=== PATIENT | male | born 1965 | race Caucasian/White ===

== ENCOUNTER 2023-03-16 07:54 | Emergency (ER) | payer OTHER ==
[~2023-03-16] VITALS: Ht 182.9 cm; Wt 85.4 kg
[2023-03-16 12:50] VITALS: BP 129/85; PULSE 69; RESP 18; TEMP 98.1; O2SAT 98
== END 2023-03-16 16:07 | disposition home or self-care (01) ==
LOC: ER 07:54
DX: S60.221A Contusion of right hand, initial encounter (principal); M79.641 Pain in right hand; G89.29 Other chronic pain; Z56.0 Unemployment, unspecified; Z88.8 Allergy status to other drugs, medicaments and biological substances; W22.8XXA Striking against or struck by other objects, initial encounter; Y93.89 Activity, other specified; Y92.89 Other specified places as the place of occurrence of the external cause; Y99.8 Other external cause status
CPT/HCPCS: 73130; 99283; A6449

== ENCOUNTER 2023-06-26 17:39 | Emergency (ER) | payer OTHER ==
[~2023-06-26] VITALS: Ht 182.9 cm; Wt 84.3 kg
[2023-06-26 18:00] VITALS: BP 121/76; PULSE 109; RESP 18; TEMP 100.4; O2SAT 96
[2023-06-26] MEDS ORDERED: AMOX-115 PO (18:47)
[2023-06-26] MEDS: amox tr/potassium clavulanate 875/125mg TAB PO ONE (19:12)
== END 2023-06-26 19:19 | disposition home or self-care (01) ==
LOC: ER 17:40
DX: S60.222A Contusion of left hand, initial encounter (principal); Z88.8 Allergy status to other drugs, medicaments and biological substances; G89.29 Other chronic pain; M54.9 Dorsalgia, unspecified; W54.0XXA Bitten by dog, initial encounter; Y93.89 Activity, other specified; Y92.89 Other specified places as the place of occurrence of the external cause; Y99.8 Other external cause status
CPT/HCPCS: 73130; 99283; J7030; A6258; A6449

== ENCOUNTER 2023-06-30 17:03 | Inpatient (IN) | payer BC, MEDICARE, OTHER ==
[~2023-06-30] VITALS: Ht 182.9 cm; Wt 86.4 kg
[~2023-06-30 17:03] MED LIST: AMOX-115 PO
[2023-06-30] MEDS ORDERED: levoFLOXACIN-Levaquin 500mg/D5 100 ML IV SCH (19:00)
[2023-06-30 19:19] LABS: BASOPHILS # (AUTO) 0.1 X10'3 (0-0.2); BASOPHILS % (AUTO) 0.6 % (0-1); EOSINOPHILS # (AUTO) 0.3 X10'3 (0-0.9); EOSINOPHILS % (AUTO) 3.2 % (0-6); HEMATOCRIT 43.8 % (42.0-52.0); HEMOGLOBIN 15.1 g/dl (14.0-17.9); LYMPHOCYTES # (AUTO) 2.1 X10'3 (1.1-4.8); LYMPHOCYTES % (AUTO) 21.7 % (21-51); MEAN CORPUSCULAR HEMOGLOBIN 31.7 PG (27.0-31.0); MEAN CORPUSCULAR HGB CONC 34.5 g/dL (33.0-36.5); MEAN PLATELET VOLUME 7.5 FL (7.4-10.4); MONOCYTES # (AUTO) 0.9 X10'3 (0-0.9); MONOCYTES % (AUTO) 9.7 % (2-12); NEUTROPHILS # (AUTO) 6.2 X10'3 (1.8-7.7); NEUTROPHILS % (AUTO) 64.8 % (42-75); PLATELET COUNT 259 X10'3 (140-440); RED BLOOD COUNT 4.76 X10'6 (4.70-6.10); WHITE BLOOD COUNT 9.6 X10'3 (4.5-11.0)
[2023-06-30] MEDS: metroNIDAZOLE-Flagyl 500mg/NS 100 ML IV ONE (19:24)
[2023-06-30] MEDS: ondansetron/PF 4mg/2ml inj IV ONE (19:24)
[2023-06-30] MEDS: normal saline 1000ML IV soln IVB ONE (19:24)
[2023-06-30 19:35] LABS: ALANINE AMINOTRANSFERASE 22 U/L (12-78); ALBUMIN 3.7 G/DL (3.4-5.0); ALBUMIN/GLOBULIN RATIO 1.1 (1.1-1.5); ALKALINE PHOSPHATASE 85 IU/L (46-116); ANION GAP 9 (8-16); ASPARTATE AMINO TRANSFERASE 37 U/L (10-37); BILIRUBIN,DIRECT 0.2 MG/DL (0-0.3); BILIRUBIN,TOTAL 0.6 MG/DL (0.1-1.0); BLOOD UREA NITROGEN 11 MG/DL (7-18); BUN/CREATININE RATIO 10.6 (10.0-20.0); C-REACTIVE PROTEIN 0.86 MG/DL (0.0-0.5); CHLORIDE 102 MMOL/L (99-107); CREATININE 1.04 MG/DL (0.60-1.10); GLUCOSE 94 MG/DL (70-104); POTASSIUM 3.8 MMOL/L (3.5-5.1); SODIUM 140 MMOL/L (135-145); TOTAL CARBON DIOXIDE 28.7 MMOL/L (24-32); TOTAL PROTEIN 7.1 G/DL (6.4-8.2); eCRCL 84 ML/MIN; eGFR 73 ML/MIN
[2023-06-30 20:12] LABS: BILIRUBIN,URINE NEGATIVE (Neg); CLARITY,URINE CLEAR (Clear); COLOR,URINE YELLOW (Yellow); GLUCOSE, URINE NEGATIVE (Neg); KETONES,URINE NEGATIVE (Neg); LEUKOCYTE ESTERASE ,URINE NEGATIVE (Neg); NITRITES, URINE NEGATIVE (Neg); OCCULT BLOOD,URINE NEGATIVE (Neg); PH,URINE 6.5 (4.8-8.0); PROTEIN,URINE NEGATIVE (Neg); UROBILINOGEN,URINE 0.2 E.U/dL (0.2-1.0)
[2023-06-30 20:21] LABS: UA COLLECTION TYPE CLN CATCH MIDSTREAM
[2023-06-30] MEDS: morphine 4 MG/ML inj SYRINge IV ONE (20:38)
[2023-06-30] MEDS: levoFLOXACIN-Levaquin 500mg/D5 100 ML IV ONE (20:40)
[2023-06-30] MEDS ORDERED: HYDROcodone/acetaminophen 5mg/325mg tablet PO PRN (20:50)
[2023-06-30] MEDS ORDERED: magnesium hydroxide 30ml (MOM) UD suspension PO PRN (20:50)
[2023-06-30] MEDS ORDERED: morphine 2 MG/ML inj. syringe IV PRN ×2 (20:50)
[2023-06-30] MEDS ORDERED: magnesium Cl slow-release 64mg tablet PO PRN (20:50)
[2023-06-30] MEDS ORDERED: potassium Cl 20 mEq SR tablet PO PRN ×2 (20:50)
[2023-06-30] MEDS ORDERED: potassium Cl 40MEQ/1/2NS 520ml 520 ML IV PRN (20:50)
[2023-06-30] MEDS ORDERED: acetaminophen 325mg tablet PO PRN ×2 (20:50)
[2023-06-30] MEDS ORDERED: magnesium 2GM in 50ml NS 50 ML IV PRN (20:50)
[2023-06-30] MEDS ORDERED: magnesium 4gm in 100ml NS 100 ML IV PRN (20:50)
[2023-06-30] MEDS: ketorolac trometh. 30mg/ml inj. IV ONE (21:19)
[2023-07-01] MEDS: HYDROcodone/acetaminophen 10/325mg tab PO PRN (01:05)
[2023-07-01] MEDS: piperacillin/tazo 3.375gm/50ml 50 ML IV SCH (03:22)
[2023-07-01 07:30] VITALS: BP 147/76; PULSE 78; RESP 16; TEMP 97.6; O2SAT 97
[2023-07-01] MEDS: K and/or MAG REPLACEMENT MC SCH (08:00)
[2023-07-01 08:17] LABS: BASOPHILS % (AUTO) 0.5 % (0-1); EOSINOPHILS # (AUTO) 0.3 X10'3 (0-0.9); EOSINOPHILS % (AUTO) 3.4 % (0-6); HEMATOCRIT 42.2 % (42.0-52.0); HEMOGLOBIN 14.7 g/dl (14.0-17.9); LYMPHOCYTES # (AUTO) 1.5 X10'3 (1.1-4.8); MEAN CORPUSCULAR HEMOGLOBIN 31.5 PG (27.0-31.0); MEAN CORPUSCULAR HGB CONC 34.7 g/dL (33.0-36.5); MEAN CORPUSCULAR VOLUME 90.8 FL (78-98); MEAN PLATELET VOLUME 7.4 FL (7.4-10.4); MONOCYTES # (AUTO) 0.7 X10'3 (0-0.9); MONOCYTES % (AUTO) 8.9 % (2-12); NEUTROPHILS % (AUTO) 67.2 % (42-75); PLATELET COUNT 242 X10'3 (140-440); RED BLOOD COUNT 4.65 X10'6 (4.70-6.10); RED CELL DISTRIBUTION WIDTH 13.8 % (11.5-14.5); WHITE BLOOD COUNT 7.5 X10'3 (4.5-11.0)
[2023-07-01 08:31] LABS: ALANINE AMINOTRANSFERASE 23 U/L (12-78); ALBUMIN 3.2 G/DL (3.4-5.0); ALKALINE PHOSPHATASE 87 IU/L (46-116); ANION GAP 7 (8-16); ASPARTATE AMINO TRANSFERASE 28 U/L (10-37); BILIRUBIN,TOTAL 0.7 MG/DL (0.1-1.0); BLOOD UREA NITROGEN 8 MG/DL (7-18); BUN/CREATININE RATIO 9.4 (10.0-20.0); CALCIUM 8.1 MG/DL (8.5-10.1); CHLORIDE 104 MMOL/L (99-107); CREATININE 0.85 MG/DL (0.60-1.10); GLUCOSE 109 MG/DL (70-104); MAGNESIUM 1.8 MG/DL (1.5-2.4); POTASSIUM 3.9 MMOL/L (3.5-5.1); SODIUM 137 MMOL/L (135-145); TOTAL CARBON DIOXIDE 25.6 MMOL/L (24-32); TOTAL PROTEIN 6.4 G/DL (6.4-8.2); eCRCL 103 ML/MIN; eGFR > 90 ML/MIN
[2023-07-01] MEDS: aspirin 81mg, enteric-coated 1 TAB TABLET.DR PO SCH (08:35)
[2023-07-01] MEDS: clopidogrel 75mg tablet PO SCH (08:35)
[2023-07-01 10:00] VITALS: BP 133/77; PULSE 78; RESP 18; TEMP 98; O2SAT 95
[2023-07-01] MEDS ORDERED: CLOP75TA34 PO (11:20)
[2023-07-01] MEDS ORDERED: ASPI-611 PO (11:20)
[2023-07-01] MEDS ORDERED: CHOL20004 PO (11:20)
[2023-07-01] MEDS ORDERED: CHOL100025 PO ×2 (11:25→11:31)
[2023-07-01] MEDS: ondansetron/PF 4mg/2ml inj IV PRN (13:57)
[2023-07-01 22:00] VITALS: BP 135/72; PULSE 77; RESP 16; TEMP 98.4; O2SAT 97
[2023-07-02 03:24] LABS: BASOPHILS # (AUTO) 0.1 X10'3 (0-0.2); EOSINOPHILS # (AUTO) 0.3 X10'3 (0-0.9); EOSINOPHILS % (AUTO) 4.3 % (0-6); HEMATOCRIT 44.2 % (42.0-52.0); HEMOGLOBIN 14.9 g/dl (14.0-17.9); LYMPHOCYTES # (AUTO) 1.7 X10'3 (1.1-4.8); LYMPHOCYTES % (AUTO) 23.3 % (21-51); MEAN CORPUSCULAR HEMOGLOBIN 31.1 PG (27.0-31.0); MEAN CORPUSCULAR HGB CONC 33.8 g/dL (33.0-36.5); MONOCYTES # (AUTO) 0.7 X10'3 (0-0.9); MONOCYTES % (AUTO) 10.4 % (2-12); NEUTROPHILS # (AUTO) 4.3 X10'3 (1.8-7.7); PLATELET COUNT 244 X10'3 (140-440); RED BLOOD COUNT 4.81 X10'6 (4.70-6.10); RED CELL DISTRIBUTION WIDTH 13.8 % (11.5-14.5); WHITE BLOOD COUNT 7.1 X10'3 (4.5-11.0)
[2023-07-02 03:42] LABS: ALANINE AMINOTRANSFERASE 26 U/L (12-78); ALBUMIN 3.3 G/DL (3.4-5.0); ALKALINE PHOSPHATASE 84 IU/L (46-116); ANION GAP 8 (8-16); ASPARTATE AMINO TRANSFERASE 28 U/L (10-37); BILIRUBIN,TOTAL 0.6 MG/DL (0.1-1.0); BLOOD UREA NITROGEN 10 MG/DL (7-18); BUN/CREATININE RATIO 10.3 (10.0-20.0); CALCIUM 8.5 MG/DL (8.5-10.1); CHLORIDE 104 MMOL/L (99-107); CREATININE 0.97 MG/DL (0.60-1.10); GLUCOSE 96 MG/DL (70-104); MAGNESIUM 1.9 MG/DL (1.5-2.4); SODIUM 139 MMOL/L (135-145); TOTAL CARBON DIOXIDE 26.8 MMOL/L (24-32); TOTAL PROTEIN 6.6 G/DL (6.4-8.2); eCRCL 90 ML/MIN; eGFR 79 ML/MIN
[2023-07-02 06:45] VITALS: BP 134/80; PULSE 88; RESP 18; TEMP 98.3; O2SAT 96
[2023-07-02 08:00] VITALS: RESP 18; O2SAT 96
[2023-07-02 10:00] VITALS: BP 128/74; PULSE 92; RESP 16; TEMP 97.2; O2SAT 96
== END 2023-07-02 11:50 | disposition home or self-care (01) | DRG 603 ==
LOC: ER 17:04 → UNDOADMIN 21:02 → ED HOLD 21:02 → ORTHO 4S 07-01 07:30
PROVIDERS: ADMIT Student in an Organized Health Care Education/Training Program; ATTEND Family Medicine
DX: L03.012 Cellulitis of left finger (principal); S61.052A Open bite of left thumb without damage to nail, initial encounter; M54.9 Dorsalgia, unspecified; G89.29 Other chronic pain; I73.9 Peripheral vascular disease, unspecified; S51.832A Puncture wound without foreign body of left forearm, initial encounter; S51.812A Laceration without foreign body of left forearm, initial encounter; W54.0XXA Bitten by dog, initial encounter; Y93.89 Activity, other specified; Y92.89 Other specified places as the place of occurrence of the external cause; Y99.8 Other external cause status; Z88.5 Allergy status to narcotic agent; Z88.8 Allergy status to other drugs, medicaments and biological substances; Z79.82 Long term (current) use of aspirin; Z79.01 Long term (current) use of anticoagulants; Z79.899 Other long term (current) drug therapy; Z90.49 Acquired absence of other specified parts of digestive tract; Z98.1 Arthrodesis status; Z56.0 Unemployment, unspecified
CPT/HCPCS: 36415; 73130; 80048; 80053; 80076; 81003; 83605; 83735; 84145; 85025; 86140; 87040; 87081; 96365; 96367; 96375; 99285; A6223; A6402; A6446; A6449; G0378; J1885; J1956; J2270; J2405; J2543; J3490; J7030; J7040

== ENCOUNTER 2024-04-03 15:28 | Emergency (ER) | payer BC ==
[~2024-04-03] VITALS: Ht 182.9 cm; Wt 86.7 kg
[~2024-04-03 15:28] MED LIST changes: -AMOX-115 PO; +ASPI-611 PO; +CLOP75TA34 PO
[2024-04-03 18:50] LABS: BASOPHILS % (AUTO) 0.6 % (0-1); EOSINOPHILS # (AUTO) 0.3 X10'3 (0-0.9); EOSINOPHILS % (AUTO) 4.3 % (0-6); HEMATOCRIT 43.9 % (42.0-52.0); HEMOGLOBIN 15.2 g/dl (14.0-17.9); LYMPHOCYTES # (AUTO) 2.1 X10'3 (1.1-4.8); LYMPHOCYTES % (AUTO) 26.2 % (21-51); MEAN CORPUSCULAR HEMOGLOBIN 31.9 PG (27.0-31.0); MEAN CORPUSCULAR HGB CONC 34.6 g/dL (33.0-36.5); MEAN CORPUSCULAR VOLUME 92.2 FL (78-98); MEAN PLATELET VOLUME 7.9 FL (7.4-10.4); MONOCYTES # (AUTO) 0.6 X10'3 (0-0.9); MONOCYTES % (AUTO) 8.2 % (2-12); NEUTROPHILS # (AUTO) 4.8 X10'3 (1.8-7.7); NEUTROPHILS % (AUTO) 60.7 % (42-75); PLATELET COUNT 250 X10'3 (140-440); RED BLOOD COUNT 4.76 X10'6 (4.70-6.10); RED CELL DISTRIBUTION WIDTH 13.2 % (11.5-14.5); WHITE BLOOD COUNT 7.9 X10'3 (4.5-11.0)
[2024-04-03] MEDS: normal saline 1000ml 1,000 ML IV ONE (18:52)
[2024-04-03] MEDS: ketorolac trometh 15mg/ml vial 15 MG/ML ML IV ONE (18:55)
[2024-04-03] MEDS: ondansetron/PF 4mg/2ml inj IV ONE (18:56)
[2024-04-03 19:05] LABS: ALANINE AMINOTRANSFERASE 23 U/L (12-78); ALBUMIN 3.8 G/DL (3.4-5.0); ALBUMIN/GLOBULIN RATIO 1.3 (1.1-1.5); ALKALINE PHOSPHATASE 81 IU/L (46-116); ANION GAP 9 (8-16); ASPARTATE AMINO TRANSFERASE 20 U/L (10-37); BILIRUBIN,TOTAL 0.5 MG/DL (0.1-1.0); BLOOD UREA NITROGEN 13 MG/DL (7-18); BUN/CREATININE RATIO 12.9 (10.0-20.0); CALCIUM 8.9 MG/DL (8.5-10.1); CHLORIDE 104 MMOL/L (99-107); CREATININE 1.01 MG/DL (0.60-1.10); GLUCOSE 95 MG/DL (70-104); LIPASE 51 U/L (16-77); POTASSIUM 3.8 MMOL/L (3.5-5.1); SODIUM 139 MMOL/L (135-145); TOTAL CARBON DIOXIDE 25.7 MMOL/L (24-32); TOTAL PROTEIN 6.7 G/DL (6.4-8.2); eCRCL 85 ML/MIN; eGFR 75 ML/MIN
[2024-04-03] MEDS: HYDROmorphone 1 mg/ml syringe IV ONE (19:46)
[2024-04-03 20:21] VITALS: BP 139/93; PULSE 73; RESP 16; TEMP 98.2; O2SAT 97
== END 2024-04-03 20:23 | disposition home or self-care (01) ==
LOC: ER 15:28
DX: R10.13 Epigastric pain (principal); G89.29 Other chronic pain; M54.9 Dorsalgia, unspecified; Z56.0 Unemployment, unspecified; Z88.8 Allergy status to other drugs, medicaments and biological substances; Z88.5 Allergy status to narcotic agent; Z79.82 Long term (current) use of aspirin; Z79.899 Other long term (current) drug therapy
CPT/HCPCS: 36415; 80053; 83690; 85025; 96361; 96374; 96375; 99284; J1171; J1885; J2405; J7030